=== PATIENT | male | born 1985 | race Caucasian/White ===

== ENCOUNTER 2018-05-02 09:05 | Day surgery (SDC) | payer BC ==
[~2018-05-02] VITALS: Ht 180.3 cm; Wt 93.0 kg
[~2018-05-02 09:05] MED LIST: CETIRIZINE HCL10 MG PO; HAIR, SKIN & N1 EAC1 PO; METAMUCIL0.4 GM PO; MULTIPLE VITAM1 EAC2 PO; RANITIDINE HCL150 M1 PO; TYLENOL325 MG PO; VENLAFAXINE HC225 MG PO; VITAMIN B122500 MC1 PO
[2018-05-02] MEDS ORDERED: GABAPENTIN300 MG PO (12:00)
[2018-05-02] MEDS ORDERED: HYDROCODON-ACE1 EA11 PO (12:00)
--- NOTE | 2018-05-02 12:30 | NUR ---
05/02/18 1230 Linda Burciaga 1159 PT ARRIVED IN PACU SLEEPY WITH L SHOULDER IMMOBILIZER IN PLACE. 1212 TORADOL 15MG GIVEN IVP PER ORDERS. 1215 OXGYEN REMOVED. CRYOCUFF PLACED ON L SHOULDER. 1221 C/O L SHOULDER PAIN 6/10. FENTANYL 25MCG GIVEN IVP. WARM BLANKET GIVEN. 1228 PAIN DOWN TO 4/5 OUT OF 10. FENTANYL 25MCG GIVEN IVP. PT LAYING ON R SIDE.
--- NOTE | 2018-05-02 12:54 | NUR ---
PT ARRIVES TO DS TREATMENT ROOM FROM PACU DROWSY. PT RESPONDS TO VERBAL STIMULI EASILY. PT DENIES ANY NAUSEA AND RATES PAIN 5-6/10 AND DESCRIBES IT A "SHARP PAIN ON ANTERIOR SHOULDER." PT STATES HE DOES NOT WANT ANY MEDICATION FOR PAIN AT THIS TIME. PT PROVIDED WARM BLANKETS AND WU HUGGER PLACED ON WARM. PT PROVIDED ICED WATER AND APPLESAUCE, TOLERATES PO WELL. PT SPOUSE AT BEDSIDE ON ARRIVAL ASSISTING PT. CALL LIGHT WITHIN REACH.
--- NOTE | 2018-05-02 13:36 | NUR ---
PT RESTING IN BED WATCHING TV WITH SPOUSE. PT STATES PAIN IS STILL "SHARP IN ANTERIOR SHOULDER" AND ACCEPTS PAIN MEDICATION, SEE EMAR. PT HAS URGE TO VOID, UP TO BATHROOM WITH ASSIST FROM RN AND SPOUSE. PT DENIES ANY DIZZINESS OR NAUSEA WITH POSITION CHANGES. PT ABLE TO VOID QS WITH NO PROBLEMS. PT GETS DRESSED WITH ASSISTANCE FROM SPOUSE.
--- NOTE | 2018-05-02 13:55 | NUR ---
PT ALERT, ORIENTED AND SUPPORTED BY HIS . PT IS SOMEWHAT ANXIOUS, OUTLINED WHAT HE COULD EXPECT FOR TODAY. PT REQUESTED PRAYER, AND I WILL BE AVAILABLE NEEDED
--- NOTE | 2018-05-02 14:35 | NUR ---
1400: DC CRITERIA MET AND PT AGREES TO DISCHARGE. DC INSTRUCTIONS GIVEN IN PRESENCE OF PT AND SPOUSE, ALL QUESTIONS ANSWERED. PAIN MEDICATION SCRIPT GIVEN TO PT SPOUSE WITHIN DC FOLDER. PT DC'S FROM DS TREATMENT ROOM VIA TO HOME. PT SPOUSE PULLS CAR TO MAIN ENTRANCE OF HOSPITAL.
--- NOTE | 2018-05-03 08:27 | OR ---
[facility] [address] [place], [place] [address] Signed DATE OF OPERATION: 05/02/2018 SURGEON: Rony Franklin MD PREOPERATIVE DIAGNOSES: 1. Partial tear, right subscap. 2. Biceps tendinosis. POSTOPERATIVE DIAGNOSIS: Right subscap tear, impingement with bursal plica. PROCEDURE PERFORMED: Right shoulder arthroscopy with limited debridement right shoulder, subacromial decompression with acromioplasty. ENERGY CONSERVATION REPRESENTATIVE: Helen Sheikh PA-C. Helen was present and critical for positioning, camera holding and closure. ANESTHESIA: General with interscalene block. BLOOD LOSS: Minimal. 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 He got a positive belly press sign and positive pain anteriorly. His MRI showed some thickening of the subscapularis tendon and the biceps tendon on the sagittal views. He did have a palpable painful snap anteriorly with external rotation and abduction. He could make a jump every time he move his shoulder. This was not reproducible passively, however. Risks and benefits of operative treatment were discussed with him because he had failed nonoperative treatment. He wished to proceed. Once consent was obtained, he was taken to the operating room. After adequate anesthesia was placed in beach chair position. All downside pressure points well padded. The shoulder was prepped and draped in a standard sterile fashion. The anatomy was marked out and the shoulder was injected with 15 mL of 0.25% Marcaine with epinephrine as well as subacromial space. Standard posterior portal was made. Scope was introduced in the shoulder. Electronically Signed By: RONY FRANKLIN MD 05/03/18 0827 PATIENT NAME: JASWANT ARIZMENDI OPERATIVE REPORT DATE OF : 85 REPORT #: [id number] PHYSICIAN: RONY FRANKLIN MD PCP: NO PRIMARY CARE PHYSICIAN REPORT IS CONFIDENTIAL AND NOT TO BE RELEASED WITHOUT AUTHORIZATION [facility] [address] [place] [address], [place] [address] Signed ARTHROSCOPIC FINDINGS: Significant synovitis anteriorly with a small capsular rent just above the middle glenohumeral ligament. The subscapular showed about 10% fraying of the superior side at its insertion. The biceps was completely normal. Undersurface of the remainder of the rotator cuff was intact. Glenohumeral surfaces were intact. Biceps anchor and labrum were intact. Subacromial space showed moderate bursitis with several knife-like plica anteriorly with corresponding depressions in the rotator cuff anteriorly. DESCRIPTION OF OPERATION: Standard anterior portal was made using an outside-in technique and the anterior aspect of the shoulder was debrided, the superior edge of the subscapularis was debrided after switching to a 70 degree scope. Good bleeding was obtained at the end. The biceps was carefully inspected and found to be completely intact. Prior to withdrawing the scope, we did palpate for the coracoid and there was plenty of space available for the shoulder to internally rotate. Scope was then withdrawn, placed in subacromial space and standard lateral portal was made. Using the combination of Mitek VAPR and the shaver, the bursa was removed including the two knife-like edges anteriorly. 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 Once this was completed, all bleeders were cauterized. The scope was withdrawn. Portals were closed with 3-0 nylon. The shoulder was injected with 60 mg total at the end of the case. The wounds were closed using 3-0 nylon and dressed with a dressing. He tolerated the procedure well. All sponge, needle, and instrument counts were correct. Rony Franklin MD BA/MODL /[id number] Copies: ~ Electronically Signed By: RONY FRANKLIN MD 05/03/18 0827 PATIENT NAME: JASWANT ARIZMENDI OPERATIVE REPORT DATE OF : 85 REPORT #: [id number] PHYSICIAN: RONY FRANKLIN MD PCP: NO PRIMARY CARE PHYSICIAN REPORT IS CONFIDENTIAL AND NOT TO BE RELEASED WITHOUT AUTHORIZATION
== END 2018-05-02 14:20 | disposition home or self-care (01) ==
LOC: OPS 09:05 → DS 09:05 → OPS 10:45 → DS 10:45 → OPS 14:20
PROVIDERS: Specialist
PROC: 0RNJ4ZZ Release Right Shoulder Joint, Percutaneous Endoscopic Approach (ICD-10-PCS; 2018-05-02)
PROC: 0RBJ4ZZ Excision of Right Shoulder Joint, Percutaneous Endoscopic Approach (ICD-10-PCS; principal; 2018-05-02 10:45)
DX: S46.011A Strain of muscle(s) and tendon(s) of the rotator cuff of right shoulder, initial encounter (principal); M75.51 Bursitis of right shoulder; M65.811 Other synovitis and tenosynovitis, right shoulder; M25.811 Other specified joint disorders, right shoulder; Z79.899 Other long term (current) drug therapy; X58.XXXA Exposure to other specified factors, initial encounter
CPT/HCPCS: 01630; 64415; 76942; J0690; J1100; J1885; J2250; J2405; J2704; J2765; J2795; J3010; J7120